=== PATIENT | male | born 1970 | race Hispanic/Latino ===

== ENCOUNTER 2023-01-14 08:14 | Emergency (ER) | payer SELFPAY ==
[2023-01-14] MEDS ORDERED: Dexameth. Sod Phosp. 10 MG/ML (CHEMO USE ONLY) ONE (08:55)
== END 2023-01-14 09:15 | disposition home or self-care (01) ==
LOC: ERS 08:14
DX: L30.9 Dermatitis, unspecified (principal)
CPT/HCPCS: 96372; 99282; J1100